=== PATIENT | male | born 1945 | race Caucasian/White ===

== ENCOUNTER 2023-01-24 12:45 | Day surgery (SDC) | payer MEDICARE ==
[2023-01-24] MEDS ORDERED: Sodium Chloride 0.9(Preservative Free) 10 ML IJ ONE (12:46)
[2023-01-24] MEDS ORDERED: Depo-Medrol 40 MG/ML IM ONE (12:46)
[2023-01-24] MEDS ORDERED: DIPRIVAN 200 MG/20 ML IV ONE (14:42)
[2023-01-24] MEDS ORDERED: Lactated Ringers 1,000 ML IV ONE (16:16)
--- NOTE | 2023-01-24 16:42 | XRAY ---
Indication: Right L4-S1 transforaminal SHIMON. Intraoperative fluoroscopy provided for 35 seconds. 5 digital spot image submitted for interpretation demonstrates posterior needle tips projecting over the expected right L4 and L5 nerve roots. Small amount of contrast injected for needle tip placement. Correlate with intraoperative findings/report.
--- NOTE | 2023-01-24 16:46 | XRAY ---
35 seconds of fluoroscopy was used in surgery for a right L4-S1 transforaminal SHIMON.
== END 2023-01-24 15:11 | disposition home or self-care (01) ==
LOC: SDC-PAIN 12:45
PROVIDERS: ATTEND Psychiatry & Neurology Pain Medicine
DX: M54.16 Radiculopathy, lumbar region (principal); Z79.899 Other long term (current) drug therapy
CPT/HCPCS: 64483; 64484; 72100; 77003; J1030; J2704; Q9966

== ENCOUNTER → 2023-04-25 | Day surgery (SDC) | payer MEDICARE ==
[~2023-04-25] MED LIST: DIPRIVAN 200 MG/20 ML IV ONE; Depo-Medrol 40 MG/ML IM ONE; Lactated Ringers 1,000 ML IV ONE; Sodium Chloride 0.9(Preservative Free) 10 ML IJ ONE; XYLOCAINE-MPF 1% 5ML SDV IJ ONE
--- NOTE | 2023-04-25 18:46 | XRAY ---
Indication: Lumbar SHIMON. Intraoperative fluoroscopy provided for 11 seconds. 2 digital spot image submitted for interpretation demonstrates posterior needle tip projecting posterior to lumbosacral junction. Small amount of contrast injected for needle tip placement. Correlate with intraoperative findings/report.
--- NOTE | 2023-04-25 18:50 | XRAY ---
11 seconds of fluoroscopy was used in surgery for a lumbar SHIMON.
== END ==
LOC: SDC-PAIN 12:33
PROVIDERS: ATTEND Psychiatry & Neurology Pain Medicine
DX: M54.16 Radiculopathy, lumbar region (principal)
CPT/HCPCS: 62323; 72100; 77003; J1030; J2704; Q9966